=== PATIENT | male | born 1940 | race Caucasian/White ===

== ENCOUNTER 2016-06-08 03:46 | Emergency (ER) | payer BC ==
[2016-06-08 03:56] VITALS: BMI 23.0
[2016-06-08 04:02] VITALS: RESP 16; TEMP 98.3
[2016-06-08] MEDS ORDERED: Sodium Chloride 0.9% 500 ML IV STA (04:08)
--- NOTE | 2016-06-08 04:12 | ED PDOC ---
Arrival/HPI - General Chief Complaint: Abdominal Pain Time Seen by Provider: 06/08/16 03:47 Historian: Patient, Family - History of Present Illness Narrative History of Present Illness (Text): 06/08/16 04:07 Donta Cason, a 75 year old male, whose past medical history includes diabetes, is brought in by EMS to the emergency department for epigastric abdominal pain early today. Patient's daughter states patient had nausea and episode of vomiting on the way to emergency department. Patient's daughter reports that the patient denies any fever, urinary problems or any other complaints at this time. PMD: Dr. Torres Time/Duration: 4-6 hours Symptom Onset: Sudden Symptom Course: Unchanged Quality: Other (pain) Activities at Onset: Rest Modifying Factors (Text): none Context: Home Associated Symptoms (Text): nausea, vomiting Past Medical History - Provider Review Nursing Documentation Reviewed: Yes - Cardiac Hx Cardiac Disorders: No - Pulmonary Hx Respiratory Disorders: No - Neurological Hx Neurological Disorder: No - HEENT Hx HEENT Disorder: No - Renal Hx Renal Disorder: No - Endocrine/Metabolic Hx Diabetes Mellitus Type 1: Yes - Hematological/Oncological Hx Blood Disorders: No - Integumentary Hx Dermatological Disorder: No - Musculoskeletal/Rheumatological Hx Musculoskeletal Disorders: No - Gastrointestinal Hx Gastrointestinal Disorders: No - Genitourinary/Gynecological Hx Genitourinary Disorders: No - Psychiatric Hx Psychophysiologic Disorder: No Hx Substance Use: No - Anesthesia Hx Anesthesia: No Family/Social History - Physician Review Nursing Documentation Reviewed: Yes Family/Social History: No Known Family HX Smoking Status: Never Smoked Hx Alcohol Use: No Hx Substance Use: No Allergies/Home Meds Allergies/Adverse Reactions: Allergies No Known Allergies Allergy (Verified 06/08/16 03:55) Home Medications: Home Meds Medication Instructions Recorded Confirmed Insulin Lispro [humALOG] 14 units SUBCUT DAILY 06/08/16 06/08/16 SITagliptin [Januvia] 50 mg PO BID 06/08/16 06/08/16 Review of Systems - Physician Review All systems were reviewed & negative as marked: Yes - Review of Systems Constitutional: absent: Fevers Gastrointestinal: Abdominal Pain (epigastric), Nausea, Vomiting Genitourinary Male: absent: Dysuria, Frequency, Hematuria, Urinary Output Changes Physical Exam Vital Signs Reviewed: Yes Vital Signs Temp Pulse Resp BP Pulse Ox 06/08/16 03:46 98.3 F 70 16 129/47 L 97 Temperature: Afebrile Blood Pressure: Hypotensive Pulse: Regular Respiratory Rate: Normal Appearance: Positive for: Well-Appearing, Non-Toxic, Comfortable Pain Distress: None Mental Status: Positive for: Alert and Oriented X 3 - Systems Exam Head: Present: Atraumatic, Normocephalic Pupils: Present: PERRL Extroacular Muscles: Present: EOMI Conjunctiva: Present: Normal Mouth: Present: Moist Mucous Membranes Neck: Present: Normal Range of Motion Respiratory/Chest: Present: Clear to Auscultation, Good Air Exchange. No: Respiratory Distress, Accessory Muscle Use Cardiovascular: Present: Regular Rate and Rhythm, Normal S1, S2. No: Murmurs Abdomen: Present: Tenderness (epigastric). No: Rebound, Guarding Upper Extremity: Present: Normal Inspection. No: Cyanosis, Edema Lower Extremity: Present: Normal Inspection. No: Edema Neurological: Present: GCS=15, CN II-XII Intact, Speech Normal Skin: Present: Warm, Dry, Normal Color. No: Rashes Psychiatric: Present: Alert, Oriented x 3, Normal Insight, Normal Concentration Medical Decision Making ED Course and Treatment: 06/08/16 04:16 Impression: 75 year old male with epigastric pain. Differential Diagnosis include but are not limited to: Plan: -- EKG -- Chest Xray -- Urinalysis -- Labs -- Protonnix, IV fluids, Zofran -- Reassess and disposition Progress Notes: EKG: Ordered, reviewed, and independently interpreted the EKG. Rate : 68 BPM Rhythm : NSR Interpretation : First degree AV block, early repolarization Comparison : No previous EKG for comparison. Chest X-ray: Chest Xray shows no acute disease. 06/08/16 05:23 pt reassesed. pain improved. abd soft. no ttp. labs unremarkable. pt sleeping in nad. pt offered ct scan imaging, but declines, stating "i want to go home". advise outpt f/u and return precautions - Lab Interpretations Lab Results: 06/08/16 03:58 06/08/16 03:58 Lab Results 06/08/16 04:13: Urine Color Yellow, Urine Appearance Clear, Urine pH 6.0, Ur Specific [place] 1.025, Urine Protein Negative, Urine Glucose (UA) >=1000, Urine Ketones Trace H, Urine Blood Negative, Urine Nitrate Negative, Urine Bilirubin Negative, Urine Urobilinogen 0.2, Ur Leukocyte Esterase Negative 06/08/16 03:58: WBC 8.7, RBC 4.81, Hgb 15.3, Hct 45.2, MCV 94.0, MCH 31.8, MCHC 33.8, RDW 12.2, Plt Count 200, MPV 12.1 H, Gran % 87.4 H, Lymph % (Auto) 10.8 L , Gila % (Auto) 1.4, Eos % (Auto) 0.2 L, Baso % (Auto) 0.2, Gran # 7.63 H, Lymph # 0.9 L, Gila # 0.1, Eos # 0.0, Baso # 0.02, PT 12.2 H, INR 1.13 H, APTT 28.0, Sodium 141, Potassium 4.0, Chloride 99, Carbon Dioxide 28, Anion Gap 18, BUN 16, Creatinine 0.8, Est GFR ( Amer) > 60, Est GFR (Non-Af Amer) > 60 , Random Glucose 286 H, Calcium 9.9, Magnesium 1.9, Total Bilirubin 0.5, AST 29 , ALT 37, Alkaline Phosphatase 98, Lactate Dehydrogenase 469, Total Creatine Kinase 99, Troponin I < 0.01, Total Protein 7.4, Albumin 4.1, Globulin 3.3, Albumin/Globulin Ratio 1.2, Lipase 44 - RAD Interpretation Radiology Orders: 06/08/16 04:07 CHEST PORTABLE [RAD] Stat - EKG Interpretation Interpreted by ED Physician: Yes Type: 12 lead EKG - Medication Orders Current Medication Orders: Discontinued Medications Sodium Chloride (Sodium Chloride 0.9%) 500 mls @ 999 mls/hr IV .Q31M STA Stop: 06/08/16 04:38 Last Admin: 06/08/16 04:12 Dose: 999 MLS/HR eMAR Start Stop Document 06/08/16 04:12 SF (Rec: 06/08/16 04:13 SF [id number]) Intravenous Solution Start Date 06/08/16 Start Time 04:12 End Date 06/08/16 End time 04:42 Total Infusion Time 30 Ondansetron HCl (Zofran Inj) 4 mg IVP STAT STA Stop: 06/08/16 04:09 Last Admin: 06/08/16 04:19 Dose: 4 MG IVP Administration Document 06/08/16 04:19 SF (Rec: 06/08/16 04:20 SF [id number]) Charges for Administration # of IVP Administrations 1 Pantoprazole Sodium (Protonix Inj) 40 mg IVP STAT STA Stop: 06/08/16 04:12 Last Admin: 06/08/16 04:20 Dose: 40 MG IVP Administration Document 06/08/16 04:20 SF (Rec: 06/08/16 04:20 SF [id number]) Charges for Administration # of IVP Administrations 1 - Scribe Statement The provider has reviewed the documentation as recorded by the Scribe Roxanne Lucas All medical record entries made by the Scribe were at my direction and personally dictated by me. I have reviewed the chart and agree that the record accurately reflects my personal performance of the history, physical exam, medical decision making, and the department course for this patient. I have also personally directed, reviewed, and agree with the discharge instructions and disposition. Disposition/Present on Arrival - Present on Arrival Any Indicators Present on Arrival: No History of DVT/PE: No History of Uncontrolled Diabetes: No Urinary Catheter: No History of Decub. Ulcer: No History Surgical Site Infection Following: None - Disposition Have Diagnosis and Disposition been Completed?: Yes Diagnosis: Abdominal pain Disposition: HOME/ ROUTINE Disposition Time: 05:25 Condition: STABLE Discharge Instructions (ExitCare): Acute Abdominal Pain (ED) Print Language: LIBERIAN Additional Instructions: please follow upw ith your doctor and specialist. return to er with worsening symptoms or concerns. Prescriptions: Famotidine [Pepcid] 20 mg PO DAILY #20 tab Referrals: Smooth Torres MD [Primary Care Provider] - Follow up with primary Jhonatan Medina MD [Staff Provider] - Follow up with primary
[2016-06-08 04:16] LABS: ADD MANUAL DIFF? NO
[2016-06-08 04:19] LABS: BASO # 0.02 K/mm3 (0.0-2.0); BASO % 0.2 % (0.0-3.0); EOS % 0.2 % (1.5-5.0); GRAN # 7.63 (1.4-6.5); GRAN % 87.4 % (50.0-68.0); HEMATOCRIT 45.2 % (42.0-52.0); LYMPH # 0.9 (1.2-3.4); LYMPH % 10.8 % (22.0-35.0); MEAN CORPUSCULAR HEMOGLOBIN 31.8 pg (25.0-35.0); MEAN CORPUSCULAR HGB CONC 33.8 g/dl (31.0-37.0); MEAN PLATELET VOLUME 12.1 fl (7.0-11.0); MONO # 0.1 (0.1-0.6); MONO % 1.4 % (1.0-6.0); PLATELET COUNT 200 10^3/uL (120.0-450.0); RED CELL DISTRIBUTION WIDTH 12.2 % (11.5-14.5); WHITE BLOOD COUNT 8.7 10^3/ul (4.5-11.0)
[2016-06-08 04:25] LABS: URINE BILIRUBIN NEGATIVE (NEGATIVE); URINE BLOOD NEGATIVE (NEGATIVE); URINE GLUCOSE (UA) >=1000 mg/dL (NEGATIVE); URINE KETONE TRACE mg/dL (NEGATIVE); URINE LEUKOCYTE ESTERASE NEGATIVE Leu/uL (NEGATIVE); URINE PROTEIN NEGATIVE mg/dL (<30 mg/dL); URINE UROBILINOGEN 0.2 E.U./dL (<1 E.U./dL)
[2016-06-08 04:29] LABS: URINE APPEARANCE CLEAR (CLEAR); URINE COLOR YELLOW (YELLOW)
[2016-06-08 04:40] LABS: INR 1.13 (0.93-1.08)
[2016-06-08 05:06] LABS: ALB/GLOB RATIO 1.2 (1.1-1.8); ALKALINE PHOSPHATASE 98 U/L (38-133); ALT/SGPT 37 U/L (7-56); AST/SGOT 29 U/L (15-59); BILIRUBIN,TOTAL 0.5 mg/dL (0.2-1.3); BLOOD UREA NITROGEN 16 mg/dL (7-21); CALCIUM 9.9 mg/dL (8.4-10.5); CARBON DIOXIDE 28 mmol/L (21-33); CHLORIDE 99 mmol/L (98-107); GFR AFRICAN-AMERICAN > 60; GLUCOSE,RANDOM 286 mg/dL (70-110); LIPASE 44 U/L (23-300); MAGNESIUM 1.9 mg/dL (1.7-2.2); SODIUM 141 mmol/L (132-148); TOTAL PROTEIN 7.4 g/dL (5.8-8.3)
[2016-06-08 05:21] LABS: TROPONIN I < 0.01 ng/mL
[2016-06-08 05:33] VITALS: BP 128/50; PULSE 63; O2SAT 99
--- NOTE | 2016-06-08 11:20 | RAD ---
HISTORY: abd pain COMPARISON: No prior. FINDINGS: LUNGS: Minor bibasilar atelectasis PLEURA: No significant pleural effusion identified, no pneumothorax apparent. CARDIOVASCULAR: Borderline cardiomegaly OSSEOUS STRUCTURES: No significant abnormalities. VISUALIZED UPPER ABDOMEN: No gross free intraperitoneal air seen under the diaphragmatic surfaces. 1st go all is the or OTHER FINDINGS: None. IMPRESSION: Minor bibasilar atelectasis
--- NOTE | 2016-06-08 11:45 | CARD ---
APPROVED REPORT EKG Measurement Heart [id number] <Conclusion> Sinus rhythm with 1st degree AV block Possible Left atrial enlargement Left axis deviation Anteroseptal infarct, age unknown
== END 2016-06-08 05:32 | disposition home or self-care (01) ==
LOC: ED 03:46
DX: R10.9 Unspecified abdominal pain (principal)
CPT/HCPCS: 71010; 80053; 81003; 82550; 82948; 83615; 83690; 83735; 84484; 85025; 85610; 85730; 93005; 96374; 96375; 99284; C9113; J2405; J7040

== ENCOUNTER 2017-05-16 22:16 | Observation (INO) | payer BC, MEDICARE ==
[2017-05-16 22:16] VITALS: BMI 20.5
[2017-05-16] MEDS ORDERED: Magnesium Citrate Oral SOL (300 ml) PO ONE (22:40)
--- NOTE | 2017-05-16 22:42 | ED PDOC ---
Arrival/HPI - History of Present Illness Symptom Onset: Gradual Symptom Course: Worsening Context: Sitting, Standing <Monty To - Last Filed: 05/17/17 02:56> - General Historian: Patient <Marco Kessler - Last Filed: 05/17/17 03:08> - General Chief Complaint: GI Problem Time Seen by Provider: 05/16/17 22:17 - Critical Care Narrative Critical Care (Text): 05/16/17 22:39 Patient is a 76M with a PMH of uncontrolled IDDM who presents with a 3 day history of constipation. 6 months ago the patient had an episode of incontinence followed by intermittent constipation. Then again 3 months ago he had an episode of incontinence followed by constipation. He has never had this problem before. Nothing he does makes the pain any better or any worse. He states the constipation is accompanied by pain. He was recently in the [place] for the past 3 months. No other complaints at this time. (Monty To) Past Medical History - Infectious Disease Hx of Infectious Diseases: None - Cardiac Hx Cardiac Disorders: No - Pulmonary Hx Respiratory Disorders: No - Neurological Hx Neurological Disorder: No - HEENT Hx HEENT Disorder: No - Renal Hx Renal Disorder: No - Endocrine/Metabolic Hx Diabetes Mellitus Type 1: Yes - Hematological/Oncological Hx Blood Disorders: No - Integumentary Hx Dermatological Disorder: No - Musculoskeletal/Rheumatological Hx Musculoskeletal Disorders: No - Gastrointestinal Hx Gastrointestinal Disorders: No - Genitourinary/Gynecological Hx Genitourinary Disorders: No - Psychiatric Hx Psychophysiologic Disorder: No Hx Substance Use: No - Anesthesia Hx Anesthesia: No <Monty To - Last Filed: 05/17/17 02:56> - Provider Review Nursing Documentation Reviewed: Yes <Marco Kessler - Last Filed: 05/17/17 03:08> Family/Social History Family/Social History: Unknown Family HX Smoking Status: Never Smoked Hx Alcohol Use: No Hx Substance Use: No <Monty To - Last Filed: 05/17/17 02:56> - Physician Review Nursing Documentation Reviewed: Yes <Marco Kessler - Last Filed: 05/17/17 03:08> Allergies/Home Meds <Monty To - Last Filed: 05/17/17 02:56> <Marco Kessler - Last Filed: 05/17/17 03:08> Allergies/Adverse Reactions: Allergies No Known Allergies Allergy (Verified 05/16/17 22:28) Home Medications: Home Meds Medication Instructions Recorded Confirmed SITagliptin [Januvia] 100 mg PO DAILY 06/08/16 09/09/16 Glimepiride [Amaryl] 4 mg PO BID 09/09/16 09/09/16 Insulin Aspart, Recombinant 5 unit SC ACTID 09/09/16 09/09/16 [Novolog] Insulin Detemir [Levemir] 15 unit SC HS 09/09/16 05/16/17 Pregabalin [Lyrica] 50 mg PO HS 09/09/16 09/09/16 Silodosin [Rapaflo] 8 mg PO DAILY 09/09/16 09/09/16 Review of Systems - Review of Systems Constitutional: Normal Eyes: Normal ENT: Normal Respiratory: Normal Cardiovascular: Normal Gastrointestinal: Abdominal Pain, Constipation, Other (incontinence). absent: Nausea, Vomiting Genitourinary Male: Normal Musculoskeletal: Normal Skin: Normal Neurological: Normal Endocrine: Normal Hemo/Lymphatic: Normal Psychiatric: Normal <Monty To - Last Filed: 05/17/17 02:56> - Physician Review All systems were reviewed & negative as marked: Yes <[place] - Last Filed: 05/17/17 03:08> Physical Exam Temperature: Afebrile Blood Pressure: Hypertensive Pulse: Tachycardic Respiratory Rate: Normal Appearance: Positive for: Uncomfortable. No: Comfortable Pain Distress: Moderate Mental Status: Positive for: Alert and Oriented X 3 - Systems Exam Head: Present: Atraumatic, Normocephalic Pupils: Present: PERRL Extroacular Muscles: Present: EOMI Conjunctiva: Present: Normal Mouth: Present: Moist Mucous Membranes Neck: Present: Normal Range of Motion Respiratory/Chest: Present: Clear to Auscultation, Good Air Exchange. No: Respiratory Distress, Accessory Muscle Use Cardiovascular: Present: Regular Rate and Rhythm, Normal S1, S2. No: Murmurs Abdomen: Present: Normal Bowel Sounds. No: Tenderness, Distention, Peritoneal Signs Rectal: Present: Other (impacted fecal material). No: Gross Blood, Melena, Hemorrhoids, Normal Rectal Tone, Fissures Upper Extremity: Present: Normal Inspection. No: Cyanosis, Edema Lower Extremity: Present: Normal Inspection. No: Edema Neurological: Present: GCS=15, CN II-XII Intact, Speech Normal Skin: Present: Warm, Dry, Normal Color. No: Rashes Psychiatric: Present: Alert, Oriented x 3 <YousufMonty - Last Filed: 05/17/17 02:56> Vital Signs Reviewed: Yes <Marco Kessler - Last Filed: 05/17/17 03:08> Vital Signs Temp Pulse Resp BP Pulse Ox 05/17/17 02:04 73 18 152/65 H 100 05/17/17 00:52 74 18 161/87 H 98 05/16/17 22:43 98.6 F 92 H 18 150/56 L 99 Medical Decision Making <YousufMonty - Last Filed: 05/17/17 02:56> - Lab Interpretations I have reviewed the lab results: Yes <[place] - Last Filed: 05/17/17 03:08> ED Course and Treatment: 05/16/17 23:10 Rectal exam showed fecal impaction attempt manual disimpaction 05/17/17 00:15 Patient disimpacted proceeded to have feculent emesis Abdomen/Pelvis CT Elevated blood sugar over 400 10 units given accucheck q1h, cbc, cmp, mag, blood cultures, vbg 05/17/17 02:59 CT showed constipation with sterocolic proctitis Spoke with medical insurance coder and attending, agree with plan to admit (Monty To) Patient Seen With Resident: In agreement with resident note which contains more details about the patient. Patient was seen and evaluated with resident. Came up with plan and treatment together. 76 year old male presents complaining of 3 day history of constipation. Plan: -- VBG -- CT Abd & Pelvis IV Contrast -- Labs -- Citrate of Mag, Fleet Enema, Humulin R, Morphine, Pepcid, IV Fluids, Zofran Inj -- Blood Culture -- Reassess and disposition (Marco Kessler) - Lab Interpretations Lab Results: 05/17/17 00:16 05/17/17 00:16 Lab Results 05/17/17 00:16: Sodium 141, Chloride 97 L, Potassium 4.2, Carbon Dioxide 28, Anion Gap 20, BUN 21, Creatinine 0.7 L, Est GFR ( Amer) > 60, Est GFR ( Non-Af Amer) > 60, Random Glucose 545 H* D, Calcium 11.1 H, Magnesium 2.3 H, Total Bilirubin 0.6, AST 43, ALT 53, Alkaline Phosphatase 102, Total Protein 7.3 , Albumin 4.3, Globulin 3.1, Albumin/Globulin Ratio 1.4, Lipase 85 05/17/17 00:16: WBC 11.6 H D, RBC 4.82, Hgb 15.3, Hct 45.6, MCV 94.6, MCH 31.7, MCHC 33.6, RDW 12.4, Plt Count 236, MPV 12.2 H, Gran % 92.3 H, Lymph % (Auto) 6.2 L, Gila % (Auto) 1.3, Eos % (Auto) 0.1 L, Baso % (Auto) 0.1, Gran # 10.67 H , Lymph # (Auto) 0.7 L, Gila # (Auto) 0.2, Eos # (Auto) 0.0, Baso # (Auto) 0.01 , Neutrophils % (Manual) 94 H, Lymphocytes % (Manual) 4 L, Monocytes % (Manual) 2, Platelet Evaluation Normal 05/17/17 00:16: pO2 72 H, VBG pH 7.35, VBG pCO2 57.0, VBG HCO3 31.5 H, VBG Total CO2 33.2 H, VBG O2 Sat (Calc) 95.0 H, VBG Base Excess 4.3 H, VBG Potassium 4.2, Sodium 139.0, Chloride 98.0, Glucose 548 H*, Lactate 3.5 H, FiO2 21.0, Venous Blood Potassium 4.2 05/16/17 23:46: POC Glucose (mg/dL) 484 H* 05/16/17 22:45: POC Glucose (mg/dL) 495 H* - RAD Interpretation Radiology Orders: 05/17/17 00:10 ABD & PELVIS IV CONTRAST ONLY [CT] Stat - Medication Orders Current Medication Orders: Sodium Chloride (Sodium Chloride 0.9%) 1,000 mls @ 100 mls/hr IV .Q10H [place] Discontinued Medications Famotidine (Pepcid) 20 mg IVP STAT STA Stop: 05/17/17 00:13 Last Admin: 05/17/17 00:27 Dose: 20 mg IVP Administration Document 05/17/17 00:27 IT (Rec: 05/17/17 00:27 IT [id number]) Charges for Administration # of IVP Administrations 1 Sodium Chloride (Sodium Chloride 0.9%) 1,000 mls @ 1,000 mls/hr IV .Q1H STA Stop: 05/17/17 01:11 Last Admin: 05/17/17 00:26 Dose: 1,000 mls/hr eMAR Start Stop Document 05/17/17 00:26 IT (Rec: 05/17/17 00:27 IT [id number]) Intravenous Solution Start Date 05/17/17 Start Time 00:27 End Date 05/17/17 End time 01:27 Total Infusion Time 60 Sodium Chloride (Sodium Chloride 0.9%) 1,000 mls @ 999 mls/hr IV .Q1H1M STA Stop: 05/17/17 01:36 Last Admin: 05/17/17 01:04 Dose: 999 mls/hr eMAR Start Stop Document 05/17/17 01:04 IT (Rec: 05/17/17 01:04 IT [id number]) Intravenous Solution Start Date 05/17/17 Start Time 01:04 End Date 05/17/17 End time 02:04 Total Infusion Time 60 Insulin Human Regular (Humulin R) 10 units SC STAT STA Stop: 05/16/17 22:50 Last Admin: 05/16/17 22:56 Dose: 10 units MAR Blood Glucose Document 05/16/17 22:56 IT (Rec: 05/16/17 22:56 IT [id number]) Blood Glucose Finger Stick Blood Glucose (70-120) 495 Subcutaneous Administrations Document 05/16/17 22:56 IT (Rec: 05/16/17 22:56 IT [id number]) Injection Site MAR Injection Site Left Abdomen Charges for Administration # of Subcutaneous Administrations 1 Magnesium Citrate (Citrate Of Mag) 300 ml PO ONCE ONE Stop: 05/16/17 22:41 Last Admin: 05/16/17 22:50 Dose: 300 ml Morphine Sulfate (Morphine) 2 mg IM STAT STA Stop: 05/16/17 23:14 Last Admin: 05/16/17 23:20 Dose: 2 mg MAR Pain Assessment Document 03/23/18 23:20 IT (Rec: 05/16/17 23:24 IT [id number]) Pain Reassessment Is this a pain reassessment? No Sleep Is patient sleeping during reassessment? No Presence of Pain Presence of Pain Yes Pain Scale Used Pain Scale Used Numeric Location Pain Location Body Site Generalized IM Administration Charges Document 05/16/17 23:20 IT (Rec: 05/16/17 23:24 IT [id number]) Injection Site MAR Injection Site Right Deltoid Charges for Administration # of IM Administrations 1 Ondansetron HCl (Zofran Inj) 4 mg IVP STAT STA Stop: 05/17/17 00:13 Last Admin: 05/17/17 00:27 Dose: 4 mg IVP Administration Document 05/17/17 00:27 IT (Rec: 05/17/17 00:27 IT [id number]) Charges for Administration # of IVP Administrations 1 - PA / FINANCIAL OPERATIONS CLERK / Resident Statement MD/DO has reviewed & agrees with the documentation as recorded. MD/DO has examined the patient and agrees with the treatment plan. <Monty To - Last Filed: 05/17/17 02:56> - Scribe Statement The provider has reviewed the documentation as recorded by the Scribe <Marco Kessler - Last Filed: 05/17/17 03:08> - Scribe Statement Serena Holliday Provider Scribe Attestation: All medical record entries made by the Scribe were at my direction and personally dictated by me. I have reviewed the chart and agree that the record accurately reflects my personal performance of the history, physical exam, medical decision making, and the department course for this patient. I have also personally directed, reviewed, and agree with the discharge instructions and disposition. (Marco Kessler) Disposition/Present on Arrival - Present on Arrival Any Indicators Present on Arrival: Yes History of DVT/PE: No History of Uncontrolled Diabetes: Yes Urinary Catheter: No History of Decub. Ulcer: No History Surgical Site Infection Following: None - Disposition Have Diagnosis and Disposition been Completed?: Yes Disposition Time: 02:59 Patient Plan: Admission <Monty To - Last Filed: 05/17/17 02:56> <Marco Kessler - Last Filed: 05/17/17 03:08> - Disposition Diagnosis: Proctitis, Uncontrolled blood glucose Disposition: HOSPITALIZED Patient Problems: Current Active Problems Problem Status Onset Proctitis Acute Uncontrolled blood glucose Acute Condition: GUARDED Referrals: Smooth Torres MD [Primary Care Provider] - Follow up with primary Forms: [employer] (Indonesian)
[2017-05-16] MEDS ORDERED: Insulin Regular 1 UNITS/0.01 ML ML SC STA (22:49)
[2017-05-16] MEDS ORDERED: Morphine 4 mg/ml ISec IVP STA (23:05)
[2017-05-16] MEDS ORDERED: Morphine 4 mg/ml ISec IM STA (23:13)
[2017-05-17] MEDS ORDERED: Sodium Chloride 0.9% 1,000 ML IV STA ×2 (00:12→00:36)
[2017-05-17 00:28] LABS: BASO # 0.01 K/mm3 (0.0-2.0); BASO % 0.1 % (0.0-3.0); EOS % 0.1 % (1.5-5.0); GRAN # 10.67 (1.4-6.5); GRAN % 92.3 % (50.0-68.0); HEMOGLOBIN 15.3 g/dL (14.0-18.0); LYMPH # 0.7 (1.2-3.4); LYMPH % 6.2 % (22.0-35.0); MEAN CELL VOLUME 94.6 fl (80.0-105.0); MEAN CORPUSCULAR HEMOGLOBIN 31.7 pg (25.0-35.0); MEAN CORPUSCULAR HGB CONC 33.6 g/dl (31.0-37.0); MEAN PLATELET VOLUME 12.2 fl (7.0-11.0); MONO # 0.2 (0.1-0.6); MONO % 1.3 % (1.0-6.0); PLATELET COUNT 236 10^3/uL (120.0-450.0); RBC 4.82 10^6/uL (3.5-6.1); RED CELL DISTRIBUTION WIDTH 12.4 % (11.5-14.5); VENOUS BLOOD GAS BASE EXCESS 4.3 mmol/L (0.0-2.0); VENOUS BLOOD GAS PO2 72 mm/Hg (30-55); VENOUS BLOOD PH 7.35 (7.32-7.43); WHITE BLOOD COUNT 11.6 10^3/ul (4.5-11.0)
[2017-05-17 00:47] LABS: ALB/GLOB RATIO 1.4 (1.1-1.8); ALBUMIN 4.3 g/dL (3.0-4.8); ALT/SGPT 53 U/L (7-56); AST/SGOT 43 U/L (17-59); BLOOD UREA NITROGEN 21 mg/dL (7-21); CALCIUM 11.1 mg/dL (8.4-10.5); GFR AFRICAN-AMERICAN > 60; GFR NON-AFRICAN AMERICAN > 60; LIPASE 85 U/L (23-300)
[2017-05-17] MEDS ORDERED: Iohexol 350 MG/100 ML VIAL ONE (01:00)
[2017-05-17 01:38] LABS: LYMPHOCYTE 4 % (22.0-35.0); MONOCYTE 2 % (1.0-6.0); NEUTROPHIL 94 % (50.0-70.0); PLATELET ESTIMATE NORMAL (NORMAL)
--- NOTE | 2017-05-17 02:50 | CT ---
EXAM: CT Abdomen and Pelvis With Intravenous Contrast EXAM DATE/TIME: 05/17/2017 12:10 AM CLINICAL HISTORY: 76 years old, male; Condition or disease; Other: Feculent emesis TECHNIQUE: Axial computed tomography images of the abdomen and pelvis with intravenous contrast. All CT scans at this facility use one or more dose reduction techniques, viz.: automated exposure control; ma/kV adjustment per patient size (including targeted exams where dose is matched to indication; i.e. head); or iterative reconstruction technique. Coronal and sagittal reformatted images were created and reviewed. CONTRAST: 100 mL of [id number] administered intravenously. COMPARISON: No relevant prior studies available. FINDINGS: LIMITATIONS: Mild to moderate streak/motion artifact. LOWER THORAX: Small hiatal hernia. Mild cardiomegaly. ABDOMEN: LIVER: No acute abnormality of the liver identified. GALLBLADDER AND BILE DUCTS: No CT evidence of acute cholecystitis. No evidence of significant biliary ductal dilatation. PANCREAS: No CT evidence of acute pancreatitis. SPLEEN: No acute abnormality of the spleen identified. ADRENALS: No acute abnormality of the adrenal glands identified. KIDNEYS AND URETERS: Multiple, bilateral nonobstructing renal stones, greater in the right kidney. Mild right renal scarring. Low density lesions in the right kidney, most likely representing cysts. The largest of these measures 9 mm. STOMACH AND BOWEL: Rectum is stool-filled and is moderately dilated, suspicious for a fecal impaction. There is mild rectal wall thickening and infiltration of the perirectal fat. Findings are suspicious for stercoral proctitis. Stool is noted throughout the remainder of the colon, with no evidence of a diffuse colonic obstruction. Otherwise, no definite abnormality of the bowel are seen. No evidence of small bowel obstruction. APPENDIX: Normal appendix is not seen, however, there are no significant inflammatory changes visualized in the expected location of the appendix to suggest appendicitis. Recommend clinical correlation. PELVIS: BLADDER: Bladder is mildly dilated. REPRODUCTIVE: Prostate gland is mildly enlarged. ABDOMEN and PELVIS: INTRAPERITONEAL SPACE: No evidence of free intraperitoneal air or fluid. BONES/JOINTS: Marked, multilevel degenerative disc disease of the spine. SOFT TISSUES: No evidence of abdominal wall hernia containing bowel. VASCULATURE: No evidence of abdominal aortic aneurysm. No evidence of periaortic hemorrhage. LYMPH NODES: No evidence of diffuse lymphadenopathy. IMPRESSION: - FINDINGS SUSPICIOUS FOR STERCORAL PROCTITIS, DUE TO A RECTAL FECAL IMPACTION. - Otherwise, no definite acute process. - See above for remaining findings.
[2017-05-17 03:51] LABS: VENOUS BLOOD GAS BASE EXCESS 5.2 mmol/L (0.0-2.0); VENOUS BLOOD GAS PO2 114 mm/Hg (30-55); VENOUS BLOOD PH 7.39 (7.32-7.43)
[2017-05-17] MEDS: Sodium Chloride 0.9% 1,000 ML IV SCH ×2 (03:52→16:46)
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
[2017-05-17] MEDS: Pantoprazole 40 mg EC Tab PO SCH ×2 (06:21→09:39)
[2017-05-17] MEDS ORDERED: Influenza Vaccine 60 mcg/0.5 mL SYR (4YR UP) IM ONE (06:32)
[2017-05-17] MEDS ORDERED: Pneumococcal 23-Valent Vaccine IM ONE (06:32)
[2017-05-17 07:35] LABS: HEMOGLOBIN 14.4 g/dL (14.0-18.0); MEAN CELL VOLUME 95.4 fl (80.0-105.0); MEAN CORPUSCULAR HEMOGLOBIN 31.6 pg (25.0-35.0); MEAN CORPUSCULAR HGB CONC 33.2 g/dl (31.0-37.0); RBC 4.55 10^6/uL (3.5-6.1); RED CELL DISTRIBUTION WIDTH 12.6 % (11.5-14.5); WHITE BLOOD COUNT 11.4 10^3/ul (4.5-11.0)
[2017-05-17 07:59] LABS: ALB/GLOB RATIO 1.3 (1.1-1.8); ALBUMIN 3.8 g/dL (3.0-4.8); ALT/SGPT 58 U/L (7-56); AST/SGOT 32 U/L (17-59); BLOOD UREA NITROGEN 15 mg/dL (7-21); CALCIUM 10.4 mg/dL (8.4-10.5); GFR AFRICAN-AMERICAN > 60; GFR NON-AFRICAN AMERICAN > 60
[2017-05-17] MEDS: Insulin Lispro (humaLOG) MEDIUM Coverage SC SCH ×5 (08:13→21:55)
[2017-05-17] MEDS: POLYETHYLENE GLYCOL 3350 17 GM/Dose PACKET PO SCH ×2 (09:41→17:30)
[2017-05-17] MEDS ORDERED: Insulin Detemir 100 units/ml Vial (Levemir) SC SCH (22:00)
[2017-05-17 22:07] VITALS: RESP 16
--- NOTE | 2017-05-18 05:21 | CON ---
DATE: 05/17/2017 This patient was seen and evaluated earlier. REASON FOR CONSULTATION: Abdominal pain and constipation. HISTORY OF PRESENT ILLNESS: This is a 76-year-old patient with past medical history of diabetes mellitus who returned from [facility] after 7 months' stay there, was presented to the emergency room with a complaint of constipation for more than 3 days with severe abdominal discomfort worsening. No vomiting. Denies any bleeding per rectum. He also has some difficulty in passing urine and he has a history of vomiting. PAST MEDICAL HISTORY: Other past medical history is positive as above. PAST SURGICAL HISTORY: Cataract surgery. ALLERGIES: NO KNOWN DRUG ALLERGIES. SOCIAL HISTORY: Denies smoking. Alcohol socially. REVIEW OF SYSTEMS: Positive as above. All other systems reviewed and negative. PHYSICAL EXAMINATION: GENERAL: The patient is lying on the bed, not in acute distress. VITAL SIGNS: Temperature is 97.8, pulse 54, blood pressure 154/90, respiration 15, O2 saturation 99. HEENT: Atraumatic, anicteric. NECK: Supple. HEART: S1, S2 heard. LUNGS: Bilateral air entry present. ABDOMEN: Soft. No tenderness. EXTREMITIES: No edema. No cyanosis. NEUROLOGIC: Alert, oriented. Moves all the extremities. LABORATORY DATA: Hemoglobin 14.4, hematocrit 43.4, WBC 11.4, platelets 235. Chemistry showed random glucose 364, ALT 58. CT scan of the abdomen and pelvis, which was done reviewed. There is a large amount of stool present in the rectum with fecal impaction, had a distended bladder. The rectal wall appeared to be thickened. IMPRESSION: This is a 76-year-old patient with diabetes mellitus, presented with an abdominal pain, constipation. CT shows large amount of stool in the rectum for the fecal impaction with distended bladder. The patient had a rectal wall thickening suggestive of stercoral inflammation. The patient since admission had bowel movements. Received magnesium citrate, had 2 bowel movements, feeling much better, presently on MiraLax twice daily. No further episodes of vomiting, on clear liquid diet. The patient has episodes of constipation, had colonoscopy about 2-3 years ago in [place]. He does not remember the details. RECOMMENDATION: Advised to continue the MiraLax. The patient has large amount of stool present. He would benefit with increasing the dose. The patient may advance the diet. The patient would benefit from elective colonoscopy. Discussed with the patient at length who understood. Thank you very much for allowing us to participate in the care of the patient. [place] MD
[2017-05-18] MEDS: Pantoprazole 40 mg EC Tab PO SCH (05:47)
[2017-05-18 07:33] LABS: HEMOGLOBIN 14.2 g/dL (14.0-18.0); MEAN CELL VOLUME 96.4 fl (80.0-105.0); MEAN CORPUSCULAR HEMOGLOBIN 31.8 pg (25.0-35.0); MEAN PLATELET VOLUME 12.1 fl (7.0-11.0); RBC 4.46 10^6/uL (3.5-6.1); RED CELL DISTRIBUTION WIDTH 12.4 % (11.5-14.5)
[2017-05-18 07:54] LABS: ALB/GLOB RATIO 1.2 (1.1-1.8); ALBUMIN 3.4 g/dL (3.0-4.8); ALT/SGPT 44 U/L (7-56); AST/SGOT 25 U/L (17-59); BLOOD UREA NITROGEN 10 mg/dL (7-21); CALCIUM 10.5 mg/dL (8.4-10.5); GFR AFRICAN-AMERICAN > 60; GFR NON-AFRICAN AMERICAN > 60
[2017-05-18] MEDS: Insulin Lispro (humaLOG) MEDIUM Coverage SC SCH ×2 (08:04→11:37)
[2017-05-18 08:16] VITALS: BP 113/73; PULSE 54; TEMP 97.7; O2SAT 100
[2017-05-18] MEDS: POLYETHYLENE GLYCOL 3350 17 GM/Dose PACKET PO SCH (10:15)
--- NOTE | 2017-05-18 22:27 | PN ---
DATE: 05/18/2017 SUBJECTIVE: This patient was seen and evaluated earlier today. Patient has been doing well. No complaints of any abdominal pain and no bowel movements yet, but patient had a large bowel movement yesterday. Patient is planned to be discharged today. PHYSICAL EXAMINATION: VITAL SIGNS: Temperature is 97.7, blood pressure is 113/73, pulse 54, respirations 18. HEENT: Atraumatic, anicteric. NECK: Supple. HEART: S1, S2 heard. LUNGS: Bilateral air entry present. ABDOMEN: Soft. There is no tenderness. IMPRESSION: This 76-year-old patient was admitted with fecal impaction and stercoral ulceration, clinically improving. Patient is on MiraLax; we will continue that. Patient had a colonoscopy 2 to 3 years ago. In view of the change of bowel habits and the worsening of the constipation with recent fecal impaction, would benefit from the colonoscopy. RECOMMENDATIONS: The patient is advised to take the MiraLax 1 to 2 doses per day to keep the bowels regular. Advised to follow up in our office to have the colonoscopy scheduled in 2 to 3 weeks' time. Patient was advised to have medical follow up with the primary physician and the recommendations are discussed with the patient at length and the contact details are given to the patient. Thank you very much. [place] L[place] MD
== END 2017-05-18 14:22 | disposition home or self-care (01) ==
LOC: ED 22:16 → INTOOBSV 05-17 02:58 → ERH 05-17 02:58 → 5RSO 05-17 05:15
PROVIDERS: ADMIT Internal Medicine; ATTEND Internal Medicine
DX: K56.41 Fecal impaction (principal); E11.65 Type 2 diabetes mellitus with hyperglycemia; Z91.14 Patient's other noncompliance with medication regimen; R33.9 Retention of urine, unspecified; R32 Unspecified urinary incontinence; Z79.4 Long term (current) use of insulin
CPT/HCPCS: 36415; 74177; 80053; 82803; 82948; 83036; 83690; 83735; 85025; 85027; 87040; 96361; 96372; 96374; 96375; 99285; G0378; J2270; J2405; J7040; Q9967

== ENCOUNTER 2017-09-30 09:53 | Day surgery (SDC) | payer BC, MEDICARE ==
[2017-09-30 07:48] VITALS: BMI 19.8
[2017-09-30 10:35] LABS: BASO # 0.02 K/mm3 (0.0-2.0); BASO % 0.3 % (0.0-3.0); EOS % 0.3 % (1.5-5.0); GRAN # 5.72 (1.4-6.5); GRAN % 82.9 % (50.0-68.0); HEMOGLOBIN 15.4 g/dL (14.0-18.0); LYMPH # 0.9 (1.2-3.4); LYMPH % 12.9 % (22.0-35.0); MEAN CELL VOLUME 94.1 fl (80.0-105.0); MEAN CORPUSCULAR HEMOGLOBIN 31.4 pg (25.0-35.0); MEAN CORPUSCULAR HGB CONC 33.3 g/dl (31.0-37.0); MONO # 0.3 (0.1-0.6); MONO % 3.6 % (1.0-6.0); RBC 4.91 10^6/uL (3.5-6.1); RED CELL DISTRIBUTION WIDTH 12.5 % (11.5-14.5); WHITE BLOOD COUNT 6.9 10^3/ul (4.5-11.0)
[2017-09-30 10:45] LABS: ALB/GLOB RATIO 1.4 (1.1-1.8); ALBUMIN 4.1 g/dL (3.0-4.8); ALT/SGPT 47 U/L (7-56); AST/SGOT 29 U/L (17-59); BLOOD UREA NITROGEN 14 mg/dL (7-21); CALCIUM 10.1 mg/dL (8.4-10.5); GFR AFRICAN-AMERICAN > 60; GFR NON-AFRICAN AMERICAN > 60
[2017-09-30 10:59] LABS: INR 1.03; PROTHROMBIN TIME 11.9 SECONDS (9.4-12.5)
[2017-09-30] MEDS ORDERED: Propofol 10 mg/ml Inj (20 ML) ONE (12:19)
[2017-09-30] MEDS ORDERED: ePHEDrine 50 mg/ml Inj ONE (13:29)
[2017-09-30] MEDS ORDERED: Simethicone 40 mg/0.6 ml Liquid (30 ml) ONE (13:44)
[2017-09-30] MEDS ORDERED: Sodium Chloride 0.9% 1,000 ML IV SCH (14:30)
[2017-09-30 14:52] VITALS: BP 120/73; PULSE 62; RESP 18; TEMP 97.7; O2SAT 99
== END 2017-09-30 15:40 | disposition home or self-care (01) ==
LOC: ENDO 09:53
PROVIDERS: ATTEND Internal Medicine Gastroenterology
DX: B37.81 Candidal esophagitis (principal); R63.4 Abnormal weight loss; K64.8 Other hemorrhoids; K57.30 Diverticulosis of large intestine without perforation or abscess without bleeding; D12.3 Benign neoplasm of transverse colon; Q43.8 Other specified congenital malformations of intestine; K31.7 Polyp of stomach and duodenum; K29.50 Unspecified chronic gastritis without bleeding; N40.0 Benign prostatic hyperplasia without lower urinary tract symptoms; E11.40 Type 2 diabetes mellitus with diabetic neuropathy, unspecified; Z98.49 Cataract extraction status, unspecified eye; K59.00 Constipation, unspecified
CPT/HCPCS: 36415; 43239; 45385; 80053; 82948; 85025; 85610; 85730; 88104; 88305; 88342; J2001; J2704; J7030; J7040

== ENCOUNTER 2018-03-13 09:07 | Day surgery (SDC) | payer BC, MEDICARE ==
[2018-03-13 09:47] VITALS: BMI 21.2
[2018-03-13] MEDS ORDERED: Propofol 10 mg/ml Inj (20 ML) ONE (11:06)
[2018-03-13 11:30] VITALS: O2SAT 99
[2018-03-13] MEDS ORDERED: Sodium Chloride 0.9% 1,000 ML IV SCH (11:30)
[2018-03-13 15:19] VITALS: PULSE 61; RESP 16; TEMP 98
[2018-03-13 15:22] VITALS: BP 160/88
== END 2018-03-13 13:15 | disposition home or self-care (01) ==
LOC: ENDO 09:07
PROVIDERS: ATTEND Internal Medicine Gastroenterology
DX: K21.0 Gastro-esophageal reflux disease with esophagitis (principal); E11.9 Type 2 diabetes mellitus without complications; K29.50 Unspecified chronic gastritis without bleeding; T18.2XXA Foreign body in stomach, initial encounter
CPT/HCPCS: 43239; 82948; 88305; 88312; 88342; J2001; J2704; J7030